=== PATIENT | male | born 2000 | race Caucasian/White ===

== ENCOUNTER 2022-01-31 19:22 | Emergency (ER) | payer SELFPAY ==
[~2022-01-31] VITALS: Ht 167.6 cm; Wt 60.5 kg
[2022-01-31 20:05] VITALS: BP 145/77
[2022-01-31] MEDS ORDERED: AMOX-277 PO (21:00)
[2022-01-31] MEDS ORDERED: IBUP800T26 PO (21:00)
== END 2022-01-31 22:57 | disposition home or self-care (01) ==
LOC: ER 19:24
DX: S61.411A Laceration without foreign body of right hand, initial encounter (principal); W23.0XXA Caught, crushed, jammed, or pinched between moving objects, initial encounter; Y93.89 Activity, other specified; Y92.89 Other specified places as the place of occurrence of the external cause; Y99.8 Other external cause status

== ENCOUNTER 2022-11-10 03:58 | Emergency (ER) | payer MEDICAID ==
[~2022-11-10] VITALS: Ht 167.6 cm; Wt 68.2 kg
[~2022-11-10 03:58] MED LIST: AMOX875T4 PO; IBUP-1455 PO
[2022-11-10 04:30] LABS: Basophils # (auto) 0.1 10 ^3/uL (0-0.2); Basophils % (auto) 0.6 % (0.0-2.0); Eosinophils # (auto) 0.9 10 ^3/uL (0-0.8); Eosinophils % (auto) 9.4 % (0.0-7.0); Hematocrit 47.5 % (41.0-53.0); Hemoglobin 15.8 g/dL (13.5-17.5); Lymphocytes # (auto) 2.7 10 ^3/uL (0.4-5.4); Lymphocytes % (auto) 28.4 % (10.0-50.0); Mean Corpuscular Hemoglobin 29.7 pg (28.0-32.0); Mean Corpuscular Hgb Conc. 33.2 g/dL (32.0-36.0); Mean Corpuscular Volume 89.3 fL (80.0-100.0); Monocytes # (auto) 0.8 10 ^3/uL (0-1.3); Monocytes % (auto) 8.2 % (0.0-12.0); Neutrophils # (auto) 5.1 10 ^3/uL (1.6-8.6); Neutrophils % (auto) 53.4 % (37.0-80.0); Nucleated Red Blood Cells % 0.1 %; Red Blood Cells 5.32 10^6/uL (4.5-5.90); Red Cell Distribution Width 13.2 % (11.8-14.3); White Blood Cell 9.5 10^3/uL (4.4-10.8)
[2022-11-10 04:45] LABS: Albumin 3.6 g/dL (3.4-5.0); Calcium 8.6 mg/dL (8.5-10.1); Potassium 4.5 mmol/L (3.5-5.1)
[2022-11-10 04:47] LABS: BUN/Creatinine Ratio 13.9 (10.0-20.0)
[2022-11-10 04:50] LABS: Bilirubin, Total 0.3 mg/dL (0.2-1.0); Total Protein 6.8 g/dL (6.4-8.2)
[2022-11-10 05:08] VITALS: PULSE 71; RESP 18; O2SAT 88
[2022-11-10 07:18] VITALS: BP 130/81; PULSE 77; RESP 16; TEMP 98.1; O2SAT 95
== END 2022-11-10 07:19 ==
LOC: EDBD 03:58 → ER 03:58
DX: T40.411A Poisoning by fentanyl or fentanyl analogs, accidental (unintentional), initial encounter (principal); T50.7X1A Poisoning by analeptics and opioid receptor antagonists, accidental (unintentional), initial encounter; Z79.1 Long term (current) use of non-steroidal anti-inflammatories (NSAID); Z79.899 Other long term (current) drug therapy; Y92.89 Other specified places as the place of occurrence of the external cause
CPT/HCPCS: 36415; 70450; 71045; 80053; 84484; 85025; 93005

== ENCOUNTER 2022-12-21 04:39 | Emergency (ER) | payer MEDICAID ==
[~2022-12-21] VITALS: Ht 172.7 cm; Wt 68.2 kg
[2022-12-21 04:44] VITALS: BP 165/98; PULSE 100; RESP 24; O2SAT 95
[2022-12-21] MEDS ORDERED: NALO4SPR2 (05:27)
== END 2022-12-21 05:13 | disposition left against medical advice (07) ==
LOC: EDUNIT# 04:39 → ER 04:39 → EDBD 04:39 → ER 05:04
DX: T40.411A Poisoning by fentanyl or fentanyl analogs, accidental (unintentional), initial encounter (principal); R94.31 Abnormal electrocardiogram [ECG] [EKG]; Y92.89 Other specified places as the place of occurrence of the external cause
CPT/HCPCS: 93005

== ENCOUNTER 2023-09-06 13:24 | Emergency (ER) | payer MEDICAID ==
[~2023-09-06] VITALS: Ht 167.6 cm; Wt 61.6 kg
[~2023-09-06 13:24] MED LIST changes: +NALO4SPR2
[2023-09-06 13:40] VITALS: BP 142/95; PULSE 95; RESP 18; O2SAT 95
== END 2023-09-06 21:55 | disposition left against medical advice (07) ==
LOC: ER 13:24
DX: M25.562 Pain in left knee (principal); M79.652 Pain in left thigh; M79.89 Other specified soft tissue disorders; Z53.21 Procedure and treatment not carried out due to patient leaving prior to being seen by health care provider; W18.39XA Other fall on same level, initial encounter; Y93.89 Activity, other specified; Y92.89 Other specified places as the place of occurrence of the external cause; Y99.8 Other external cause status

== ENCOUNTER 2025-04-01 08:33 | Emergency (ER) | payer MEDICAID ==
[~2025-04-01] VITALS: Ht 167.6 cm; Wt 59.9 kg
[2025-04-01 08:36] VITALS: BP 152/95; PULSE 108; RESP 16; TEMP 97.9; O2SAT 96
[2025-04-01] MEDS ORDERED: SODIUM CHLORIDE 0.9% 1,000 ML IV ONE (09:15)
[2025-04-01] MEDS ORDERED: CLINDAMYCIN 600MG IV 50 ML IV ONE (09:15)
--- NOTE | 2025-04-01 09:37 | ED.PDOC ---
History of Present Illness HPI Comments 24-year-old male with a PMH of hypertension (not on any medication), surgical history of left knee surgery (1 year ago) has come to the ER with chief complaints of draining wound below his left knee. Patient reports that 1 year ago he had knee surgery for tibial plateau fracture (hardware put in) and despite being told to stay in the hospital, he left AMA. He reports that he did not rest as educated by the doctor, since he was homeless, and 3 months after the surgery, noticed a large lump in the knee, which he poked with a needle and had a large amount of pus and blood drain from it. Patient reports that since then/the last 9 months he has had on and off draining pus from the different sites he has poked with a needle. He denies any fever, chills, nausea, vomiting, severe pain in the knee, or weakness. On initial assessment, the left knee is slightly swollen, warm, erythematous, and there is presence of a draining wound leaking yellow pus, Chief Complaint: Wound Check Time Seen by MD: 09:00 Primary Care Provider: SHE Navarro Notes: Medications, Allergies Allergies: Coded Allergies: NO KNOWN ALLERGIES (Unverified , 01/31/22) Home Meds Active Scripts Naloxone HCl (Narcan) 4 Mg/0.1 Ml Spr, 4 MG NA BID PRN for 2 Days, #2 EA 3 Refills Prov:SONDRA COTTO DO 12/21/22 Ibuprofen Micronized (Ibuprofen) 800 Mg Tab, 800 MG PO TID PRN, #30 TAB Prov:CARLOS AGUAYO 01/31/22 Amoxicillin & Pot Clavulanate (Amoxicillin/Potassium Cla) 875 Mg Tab, 1 TAB PO BID for 10 Days, #20 TAB Prov:CARLOS AGUAYO 01/31/22 Information Source: Patient Mode of Arrival: Ambulatory Severity: Mild Timing: Months Duration: Intermittent Prehospital treatment: None Past Medical History PAST MEDICAL HISTORY: HTN Surgical History (Other): Left knee surgery for tibial plateau fracture, right hand surgery Family History Family History: Reviewed,noncontributory to illness Social History Smoker: Cigarettes (Smokes around 5-6 per day- for the last 9 years), Less Than 1 Pack/Day Alcohol: Denies ETOH Use Drugs: Marijuana (Smokes 1 joint every 2 weeks) Lives In: Homeless Constitutional: denies: chills, diaphoresis, fatigue, fever, malaise, sweats, weakness, others EENTM: reports: ear discharge; denies: blurred vision, double vision, ear bleeding, ear drainage, ear pain, ear ringing, eye pain, eye redness, hearing loss, mouth pain, mouth swelling, nasal discharge, nose bleeding, nose congestion, nose pain, photophobia, tearing, throat pain, throat swelling, voice changes, others Respiratory: denies: cough, hemoptysis, orthopnea, SOB at rest, shortness of breath, SOB with excertion, stridor, wheezing, others Cardiovascular: denies: chest pain, dizzy spells, diaphoresis, Dyspnea on exertion, edema, irregular heart beat, left arm pain, lightheadedness, palpitations, PND, syncope, others Gastrointestinal: denies: abdomen distended, abdominal pain, blood streaked bowels, constipated, diarrhea, dysphagia, difficulty swallowing, hematemesis, melena, nausea, poor appetite, poor fluid intake, rectal bleeding, rectal pain, vomiting, others Genitourinary: denies: burning, dysuria, flank pain, frequency, hematuria, incontinence, penile discharge, penile sore, pain, testicle pain, testicle swelling, urgency, others Neurological: denies: dizziness, fainting, headache, left sided numbness, left sided weakness, numbness, paresthesia, pre-existing deficit, right sided numbness, right sided weakness, seizure, speech problems, tingling, tremors, we akness, others Musculoskeletal: denies: back pain, gout, joint pain, joint swelling, muscle pain, muscle stiffness, neck pain, others Integumetry: reports: wounds (Presence of draining wound in left knee, erythematous, warm to touch); denies: bruises, change in color, change in hair/nails, dryness, laceration, lesions, lumps, rash, others Allergic/Immunocompromised: denies: Difficulty Healing, Frequent Infections, Hives, Itching, others Hematologic/Lymphatic: denies: anemia, blood clots, easy bleeding, easy bruising, swollen glands, others Endocrine: denies: excessive hunger, excessive sweating, excessive thirst, excessive urination, flushing, intolerance to cold, intolerance to heat, unexplained weight gain, unexplained weight loss, others Psychiatric: denies: anxiety, bipolar disorder, depression, hopeless, panic disorder, schizophrenia, sleepless, suicidal, others Physical Exam General Appearance: Mild Distress HEENT: Other (No pallor, no icterus, maintains eye contact) Neck: Full Range of Motion, Non-Tender, Normal Inspection Respiratory: No Accessory Muscle Use, No Respiratory Distress, Normal Breath Sounds, Other (No rhonchi, no stridor, no wheezing) Cardiovascular: No Edema, No JVD, No Murmur, Tachycardia Breast Exam: Deferred Gastrointestinal: Non Tender, Normal Bowel Sounds, Other (No guarding, no rebound tenderness, no masses palpated) Genitalia: Deferred Pelvic: Deferred Rectal: Deferred Extremities: Decreased range of motion, No calf tenderness, No pedal edema, Other (Slightly deformed left knee cap, erythematous, draining wound present on the left knee, warm to touch) Neurologic: Other (No facial droop pain, no sensorimotor deficits) Cerebellar Function: Unable to Test Reflexes: Normal Skin: Dry, Warm, Wounds, Other (Edema in the left knee) Lymphatic: Other (No cervical lymphadenopathy) Was a procedure done? Was a procedure done?: No Differential Dx Considerations may include: Cellulitis X-Ray, Labs, Meds, VS Vital Signs Date Time Temp Pulse Resp B/P (MAP) Pulse Ox O2 Delivery O2 Flow Rate FiO2 04/01/25 08:36 97.9 108 16 152/95 96 97.9 Lab Test 04/01/25 09:35 Range/Units White Blood Count 8.8 4.4-10.8 10^3/uL Red Blood Count 4.34 L 4.5-5.90 10^6/uL Hemoglobin 12.3 L 13.5-17.5 g/dL Hematocrit 36.1 L 41.0-53.0 % Mean Corpuscular Volume 83.2 80.0-100.0 fL Mean Corpuscular Hemoglobin 28.3 28.0-32.0 pg Mean Corpuscular Hemoglobin Concent 34.0 32.0-36.0 g/dL Red Cell Distribution Width 14.0 11.8-14.3 % Platelet Count 336 140-450 10^3/uL Mean Platelet Volume 7.5 6.9-10.8 fL Neutrophils (%) (Auto) 71.6 37.0-80.0 % Lymphocytes (%) (Auto) 17.0 10.0-50.0 % Monocytes (%) (Auto) 9.7 0.0-12.0 % Eosinophils (%) (Auto) 1.4 0.0-7.0 % Basophils (%) (Auto) 0.3 0.0-2.0 % Neutrophils # (Auto) 6.3 1.6-8.6 10 ^3/uL Lymphocytes # (Auto) 1.5 0.4-5.4 10 ^3/uL Monocytes # (Auto) 0.9 0-1.3 10 ^3/uL Eosinophils # (Auto) 0.1 0-0.8 10 ^3/uL Basophils # (Auto) 0 0-0.2 10 ^3/uL Nucleated Red Blood Cells 0.0 % Sodium Level 136 136-145 mmol/L Potassium Level 4.8 3.5-5.1 mmol/L Chloride Level 98 98-107 mmol/L Carbon Dioxide Level 33 H 20-31 mmol/L Anion Gap 5 5-15 Blood Urea Nitrogen Pending Creatinine Pending Glomerular Filtration Rate Calc Pending BUN/Creatinine Ratio Pending Serum Glucose Pending Calcium Level Pending Patient came to the ER with draining pus in the left knee from an open wound. CBC and BMP are within normal limits. CT of the left leg shows 'Proximal tibial plateau fracture status post fixation. Hardware appears intact; Medial joint effusion with peripheral thickening of the fluid which may suggest synovial thickening/ synovitis or infection; Soft tissue swelling of the anterior knee. Findings may reflect cellulitis in the appropriate clinical setting.' Wound culture, UA and UDS pending. Patient was given IV Rocephin 1g and IV clindamycin 600 mg and 1 L bolus 0.9% NS in the ER. He requires further inpatient admission for administration of IV antibiotics and wound care. Images Reviewed?: Images reviewed and evaluated by me Time of 1ST Reevaluation: 10:33 Reevaluation 1ST: Unchanged Patient Education/Counseling: Diagnosis, Treatment Family Education/Counseling: Diagnosis, Treatment SEPSIS Sepsis Screen Date sepsis recognized/suspect: Apr 01, 2025 Time Sepsis recognized/suspect: 08 Recent Procedure: No On Antibiotic Therapy: No Respiratory Rate >20: No Heart Rate >90: Yes Temp<36 C (96.8 F) or >38.3 C: No SBP <90 or MAP <65 mmHG: No New Acute Mental Status Change: No Is the patient on CPAP, BIPAP,: No Physician Orders Basic Metabolic Panel (04/01/25 09:13) Wound Culture W/ Gs (04/01/25 09:13) Urinalysis (04/01/25 09:13) Drug Screen (04/01/25 09:13) Ct L Knee Wo Contrast (04/01/25 09:13) Vital Signs Date Time Temp Pulse Resp B/P (MAP) Pulse Ox O2 Delivery O2 Flow Rate FiO2 04/01/25 08:36 97.9 108 16 152/95 96 97.9 Laboratory Tests Test 04/01/25 09:35 White Blood Count 8.8 10^3/uL (4.4-10.8) Departure 1 Departure Time of Disposition: 10:40 Impression: Primary Impression: Cellulitis Disposition: ADMITTED INPATIENT Admit to: Med Surg Condition: Unstable Critical Care Note Critical Care Time?: No Stability Stability form required: No Heart Score Heart Score: Heart Score Response (Comments) Value History N/A 0 EKG N/A 0 Age N/A 0 Risk Factors N/A 0 Troponin N/A 0 Total 0 ELIJAH DISLA RESIDENT Apr 01, 2025 09:37
--- NOTE | 2025-04-01 10:07 | DVH ---
CLINICAL INDICATION: old fracture, draining wound, cellulitis TECHNIQUE: Noncontrast CT of the left knee was performed. Sagittal and coronal reformatted images are provided. COMPARISON: The patient has a report from a prior CT from 09/07/2023 but the images are not available for comparison. CT Dose: CTDI volume is mGy. Dose-length product is mGy*cm FINDINGS: There is a medial tibial plateau fracture and tibial eminence fracture status post fixation with a medial sideplate and several screws. The hardware appears intact. There are small fracture fragments in the medial compartment joint space. No abnormal alignment. There are no findings to suggest an acute fracture. No periosteal reaction or cortical destruction. There is a fluid in the medial aspect of the suprapatellar recess of the knee joint with peripheral soft tissue thickening. There is moderate medial and anterior knee soft tissue swelling IMPRESSION: 1. Proximal tibial plateau fracture status post fixation. Hardware appears intact. 2. Medial joint effusion with peripheral thickening of the fluid which may suggest synovial thickening/ synovitis or infection. 3. Soft tissue swelling of the anterior knee. Findings may reflect cellulitis in the appropriate clinical setting. All CT scans at this medical facility are performed using dose modulation techniques as appropriate to a performed exam including the following: Automated exposure control was utilized; adjustment of the MA and/or KV according to patient size; and use of iterative reconstruction technique.
[2025-04-01 10:18] LABS: Hematocrit 36.1 % (41.0-53.0); Hemoglobin 12.3 g/dL (13.5-17.5); Mean Corpuscular Hemoglobin 28.3 pg (28.0-32.0); Mean Corpuscular Volume 83.2 fL (80.0-100.0); Nucleated Red Blood Cells % 0.0 %
[2025-04-01 10:26] LABS: Chloride 98 mmol/L (98-107); Potassium 4.8 mmol/L (3.5-5.1); Sodium 136 mmol/L (136-145)
[2025-04-01 10:27] LABS: Anion Gap 5 (5-15)
[2025-04-01 10:28] LABS: Calcium 9.0 mg/dL (8.7-10.4); Carbon Dioxide 33 mmol/L (20-31)
[2025-04-01 10:33] LABS: BUN/Creatinine Ratio 12.2 (10.0-20.0); Blood Urea Nitrogen 11 mg/dL (9-23); Glucose 92 mg/dL (74-106)
[2025-04-01] MEDS ORDERED: ONDANSETRON HCL 4 MG/2 ML VIAL IV PRN (11:00)
[2025-04-01] MEDS ORDERED: MORPHINE SULFATE INJ 2 MG/ml SYRG IV PRN (11:00)
[2025-04-01] MEDS ORDERED: HYDROcodone-ACET 5/325MG TAB PO PRN (11:00)
[2025-04-01] MEDS ORDERED: SODIUM CHLORIDE 0.9% 1,000 ML IV SCH (11:00)
[2025-04-01] MEDS ORDERED: DOCUSATE SOD 100 MG CAP PO PRN (11:00)
[2025-04-01] MEDS ORDERED: ACETAMINOPHEN 325 MG TAB PO PRN (11:00)
[2025-04-01] MEDS ORDERED: CLINDAMYCIN 300MG IV 50 ML IV SCH (14:00)
[2025-04-01] MEDS ORDERED: METOPROLOL TARTRATE 25 MG TAB PO SCH (22:00)
[2025-04-01] MEDS ORDERED: ASCORBIC ACID 500 MG TAB PO SCH (22:00)
[2025-04-02] MEDS ORDERED: ENOXAPARIN SOD 40 MG/0.4 ML SYRINGE SC SCH (10:00)
[2025-04-02] MEDS ORDERED: ZINC SULFATE 220mg CAP or TAB PO SCH (10:00)
== END 2025-04-01 11:37 | disposition left against medical advice (07) ==
LOC: ER 08:33
DX: L03.116 Cellulitis of left lower limb (principal); I10 Essential (primary) hypertension; F17.210 Nicotine dependence, cigarettes, uncomplicated; Z98.890 Other specified postprocedural states; Z59.00 Homelessness unspecified
CPT/HCPCS: 36415; 73700; 80048; 85025